=== PATIENT | male | born 1955 | race Caucasian/White ===

== ENCOUNTER 2022-04-21 05:44 | Outpatient (CLI) | payer MEDICARE ==
[~2022-04-21] VITALS: Ht 175.3 cm; Wt 94.1 kg
[~2022-04-21 05:44] MED LIST: ACHD5005 PO; ATOR10TA66 PO; CHRO1000 PO; CPR500T PO; DIAZ2TAB PO; DOCU-143 PO; HYDR-3583 PO; LISI-594 PO; LISI10TA25 PO; METF-399 PO; METF500T3 PO; METO-354 PO; SULF1TAB35 PO
== END 2022-04-22 12:02 | disposition home or self-care (01) ==
LOC: PREOP 05:44
PROVIDERS: ATTEND Specialist
DX: Z01.818 Encounter for other preprocedural examination (principal)

== ENCOUNTER 2022-04-25 09:39 | Day surgery (SDC) | payer MEDICARE ==
[~2022-04-25] VITALS: Ht 175.3 cm; Wt 94.1 kg
[2022-04-25] MEDS: TETRACAINE 0.5% OPHTH SOLN 4 ML BTL (SINGLE DOSE ONLY) OU PRN ×4 (10:33→10:50)
[2022-04-25] MEDS: PHENYLEPHRINE 10% OPHTH (NEO-SYN) 5 ML BTL OU SCH ×3 (10:40→10:50)
[2022-04-25] MEDS: TROPICAMIDE 1% OPH SOLN (MYDRIACYL) 15 ML BTL OP SCH ×3 (10:40→10:50)
[2022-04-25 10:43] VITALS: BP 144/61
[2022-04-25] MEDS ORDERED: POVIDONE (BETADINE) OPHTH SOLN 5% 30 ML OP ONE (10:45)
[2022-04-25] MEDS ORDERED: TIMOLOL MALEATE 0.5% 5 ML (TIMOPTIC) BTL OU PRN (10:45)
[2022-04-25] MEDS ORDERED: MOXIFLOXACIN OPHTH SOLN 5 MG/ML 0.3 ML SYRINGE OP ONE (10:45)
--- NOTE | 2022-04-25 11:27 | Ophthalmologist Pre-Op Note ---
Pre-Operative Progress Note H&P Reviewed The H&P was reviewed, patient examined and no changes noted. Date H&P Reviewed: Apr 25, 2022 Time H&P Reviewed: 11:27 Pre-Op Dx Cataract, Right Eye ANDI LIND MD Apr 25, 2022 11:27
[2022-04-25] MEDS ORDERED: MIDAZOLAM 2 MG/2 ML (VERSED) VIAL ONE (11:30)
[2022-04-25] MEDS ORDERED: acetaZOLAMIDE ER 500 MG CAP (DIAMOX SEQUELS) PO ONE (12:00)
[2022-04-25] MEDS ORDERED: CARBACHOL 1.5 ML (MIOSTAT) VIAL IO ONE (12:05)
[2022-04-25] MEDS ORDERED: fentaNYL INJ 100 MCG/2 ML AMP ONE (12:14)
[2022-04-25 12:45] VITALS: BP 142/60
--- NOTE | 2022-04-25 15:43 | Anesthesia-General Post-Op ---
MAC Patient Condition Mental Status/LOC: Same as Preop Cardiovascular: Satisfactory Nausea/Vomiting: Absent Respiratory: Satisfactory Pain: Controlled Complications: Absent Post Op Complications Complications None Follow Up Care/Instructions Patient Instructions None needed. Anesthesiology Discharge Order Discharge Order Patient was doing well after the procedure, no complaints, stable vital signs, no apparent adverse anesthesia problems. No complications reported per nursing. MISSAEL MOODY DO Apr 25, 2022 15:43
--- NOTE | 2022-04-26 03:13 | OPERATIVE REPORT ---
DATE OF SERVICE: 04/25/2022 PREOPERATIVE DIAGNOSES: 1. Combined cataract, right eye. 2. Preexisting zonular dehiscence, right eye. POSTOPERATIVE DIAGNOSES: 1. Combined cataract, right eye. 2. Preexisting zonular dehiscence, right eye. PROCEDURES PERFORMED: 1. Phacoemulsification with posterior chamber intraocular lens. 2. Anterior vitrectomy that is all in the right eye. 3. Laser peripheral iridotomy, right eye. COMPLICATIONS: Preexisting zonular dehiscence with capsular loss and vitreous loss. ANESTHESIA: Topical with IV sedation. DESCRIPTION OF PROCEDURE: An informed consent was obtained from the patient and placed on his chart. He received dilating drops and an IV. He was taken to the operating room and placed in a supine position on the operating table. He was sedated by the anesthesia provider. He was prepped and draped in the usual sterile fashion. Attention was directed to the patient's right eye and a wire lid speculum was placed. A paracentesis was made at the left hand position. Preservative-free lidocaine was injected into the anterior chamber followed by viscoelastic. A clear corneal incision was then made in the temporal position with a 2.75 mm keratome. A capsulorrhexis was then made. During hydrodissection, the zonules seemed to have a fair amount of laxity/dehiscence. Hydrodissection was then carried out with balanced salt saline. The nucleus was spun with difficulty due to the zonular dehiscence. The cataract was quite dense, and a capsular tension ring was unable to be placed. The cataract was removed by phacoemulsification. During the phacoemulsification, the capsular bag came free and was removed. A small fragment of cataract went into the vitreous. There seemed to be some cortex. An anterior vitrectomy was carried out. Miochol was injected into the anterior chamber to constrict the pupil. The corneal incision was then enlarged to allow placement of anterior chamber intraocular lens. An Lam [id number] 18.5 diopter lens was placed into the anterior chamber. Three 10-0 nylon sutures were placed. The residual viscoelastic was then removed. The wire lid speculum and surgical drapes were removed. The patient was taken to the recovery room in stable condition. The patient was allowed to sit for about 30 minutes and then was placed behind the YAG laser and three small peripheral iridotomies were placed to compensate for the anterior chamber intraocular lens. Moxifloxacin had been injected into the anterior chamber following the removal of the viscoelastic. Job ID: [id number] DocumentID: [id number] Dictated Date: 04/25/2022 18:46:09 [employer] Worker Date: 04/26/2022 03:12:47 Dictated By: ANDI LIND MD
== END 2022-04-25 12:49 | disposition home or self-care (01) ==
LOC: SDC 09:39
PROVIDERS: ATTEND Specialist
DX: H25.811 Combined forms of age-related cataract, right eye (principal); Z87.891 Personal history of nicotine dependence
CPT/HCPCS: 66761; 66984; 67036; 82947; V2630

== ENCOUNTER 2022-08-08 08:29 | Day surgery (SDC) | payer MEDICARE ==
[~2022-08-08] VITALS: Ht 175.2 cm; Wt 90.9 kg
[2022-08-08] MEDS ORDERED: TIMOLOL MALEATE 0.5% 5 ML (TIMOPTIC) BTL OU PRN (09:15)
[2022-08-08] MEDS ORDERED: MOXIFLOXACIN OPHTH SOLN 5 MG/ML 0.3 ML SYRINGE OP ONE (09:15)
[2022-08-08] MEDS ORDERED: POVIDONE (BETADINE) OPHTH SOLN 5% 30 ML OP ONE (09:15)
[2022-08-08] MEDS: TETRACAINE 0.5% OPHTH SOLN 4 ML BTL (SINGLE DOSE ONLY) OU PRN ×4 (09:18→09:34)
[2022-08-08] MEDS: PHENYLEPHRINE 10% OPHTH (NEO-SYN) 5 ML BTL OU SCH ×3 (09:24→09:34)
[2022-08-08] MEDS: TROPICAMIDE 1% OPH SOLN (MYDRIACYL) 15 ML BTL OP SCH ×3 (09:24→09:34)
[2022-08-08 09:26] VITALS: BP 148/57
[2022-08-08] MEDS ORDERED: MIDAZOLAM 2 MG/2 ML (VERSED) VIAL ONE (09:32)
--- NOTE | 2022-08-08 09:48 | Ophthalmologist Pre-Op Note ---
Pre-Operative Progress Note H&P Reviewed The H&P was reviewed, patient examined and no changes noted. Date H&P Reviewed: Aug 08, 2022 Time H&P Reviewed: 09:48 Pre-Op Dx Cataract, Left Eye ANDI LIND MD Aug 08, 2022 09:48
--- NOTE | 2022-08-08 10:18 | Ophthalmology Operative Report ---
Cataract, Miotic Pupil PREOPERATIVE DIAGNOSIS: 1. Cataract Left Eye 2. Miotic Pupil POSTOPERATIVE DIAGNOSIS: 1. Cataract Left Eye 2. Miotic Pupil PROCEDURE: 1. Cataract removal and placement of posterior chamber implant, left eye 2. Pupillary expansion with malyugin ring SURGEON: Harsha Lind ANESTHESIA: Topical with sedation COMPLICATIONS: None ESTIMATED BLOOD LOSS: Minimal DESCRIPTION OF PROCEDURE: After proper informed consent was obtained, the patient, a 66 male, was taken to the Operating Room and the left eye was anesthetized with Tetracaine. The eye was then prepped and draped in the usual manner. A wire lid speculum was placed. A paracentesis was made at the left hand position. Preservative free lid ocaine was injected into anterior chamber followed by viscoelastic. A clear corneal incision was made in the temporal position. The malyugin ring was injected into the anterior chamber and the pupil was dilated. A capsulorrhexis was preformed and the central nuclear and cortical material were removed. The posterior capsule was polished and Lam 21.5 [id number] IOL was placed into the capsular bag. The myalgian ring was removed. The residual viscoelastic was aspirated and the balanced saline solution was injected into the anterior chamber. Moxifloxacin was injected into the anterior chamber. The wound was checked and found to be water tight. The patient tolerated the procedure well without complications. HARSHA LIND MD Aug 08, 2022 10:18
[2022-08-08 10:45] VITALS: BP 142/61
[2022-08-08] MEDS ORDERED: acetaZOLAMIDE ER 500 MG CAP (DIAMOX SEQUELS) PO ONE (11:15)
--- NOTE | 2022-08-08 14:08 | Anesthesia-General Post-Op ---
MAC Patient Condition Mental Status/LOC: Same as Preop Cardiovascular: Satisfactory Nausea/Vomiting: Absent Respiratory: Satisfactory Pain: Controlled Complications: Absent Post Op Complications Complications None Follow Up Care/Instructions Patient Instructions None needed. Anesthesiology Discharge Order Discharge Order Patient is doing well, no complaints, stable vital signs, no apparent adverse anesthesia problems. No complications reported per nursing. KAREN DON CRNA Aug 08, 2022 14:08
== END 2022-08-08 10:45 | disposition home or self-care (01) ==
LOC: SDC 08:29
PROVIDERS: ATTEND Specialist
DX: E11.36 Type 2 diabetes mellitus with diabetic cataract (principal); H25.9 Unspecified age-related cataract; H57.03 Miosis; Z87.891 Personal history of nicotine dependence; Z79.84 Long term (current) use of oral hypoglycemic drugs
CPT/HCPCS: 66982; V2632